=== PATIENT | male | born 1990 | race Caucasian/White ===

== ENCOUNTER 2018-11-30 21:51 | Emergency (ER) | payer OTHER ==
[~2018-11-30] VITALS: Ht 188 cm; Wt 105.6 kg
[2018-11-30] MEDS ORDERED: AMOXICILLIN500 MG PO (22:12)
[2018-11-30] MEDS ORDERED: IBUPROFEN600 MG PO (22:12)
[2018-11-30 22:16] VITALS: BP 134/100
== END 2018-11-30 22:25 | disposition home or self-care (01) | DRG 158 ==
LOC: ED 21:51
DX: K04.7 Periapical abscess without sinus (principal); M84.48XA Pathological fracture, other site, initial encounter for fracture; F17.210 Nicotine dependence, cigarettes, uncomplicated